=== PATIENT | female | born 1970 | race Caucasian/White ===

== ENCOUNTER → 2019-02-14 | Outpatient (CLI) | payer BC ==
--- NOTE | 2019-02-14 16:01 | Diagnostic Imaging Report ---
INDICATION: Thyroid nodule. EXAMINATION: Ultrasound-guided biopsy of the right lobe of the thyroid. COMPARISON: There are no prior studies for comparison. FINDINGS: Ultrasound assistance was provided for Dr. Drake Venegas during his fine-needle aspiration of the right lobe of the thyroid. Three passes were made. IMPRESSION: Ultrasound assistance was provided for Dr. Venegas. Dictated by: Dictated on workstation # [id number]
== END ==
LOC: RAD 11:39
PROVIDERS: ATTEND Otolaryngology Otolaryngology/Facial Plastic Surgery
DX: E04.1 Nontoxic single thyroid nodule (principal)
CPT/HCPCS: 76942; 88173; 88305